=== PATIENT | female | born 1980 | race Caucasian/White ===

== ENCOUNTER 2016-12-30 23:17 | Emergency (ER) | payer SELFPAY | END 2016-12-31 18:27 | disposition home or self-care (01) | LOC: EDBD 23:17 → D.ER 23:17 | DX: S61.215A Laceration without foreign body of left ring finger without damage to nail, initial encounter (principal); X58.XXXA Exposure to other specified factors, initial encounter; Y93.89 Activity, other specified; Y92.89 Other specified places as the place of occurrence of the external cause; F31.89 Other bipolar disorder; F20.9 Schizophrenia, unspecified; F41.9 Anxiety disorder, unspecified ==